=== PATIENT | male | born 1990 | race Caucasian/White ===

== ENCOUNTER 2016-10-04 20:12 | Emergency (ER) | payer SELFPAY ==
[~2016-10-04] VITALS: Ht 167.6 cm; Wt 78.0 kg
[~2016-10-04 20:12] MED LIST: VIST25CA PO
[2016-10-04 20:18] VITALS: BP 135/92; PULSE 85; RESP 18; TEMP 98.3; O2SAT 97
--- NOTE | 2016-10-04 20:35 | PD ---
HPI Chief Complaint: Laceration/Skin Injury Time Seen by Provider: 20:30 Travel History International Travel<30 days: No Contact w/Intl Traveler<30days: No Traveled to known affect area: No History of Present Illness HPI 26-year-old male presents to the emergency department for evaluation of left hand thumb laceration. Patient states he was cutting a limb with a knife when he accidentally cut his thumb. Patient is reporting that he has decreased sensation on the distal tip of his thumb. He has full range of motion. Denies any other complaints. Last tetanus vaccination more than 5 years ago. No other complaints. History Past Medical History ADHD: Yes Anxiety: Yes Asthma: Yes Autoimmune Disease: No Bipolar Disorder: Yes Blood Disorders: No Cancer: No Heart Rhythm Problems: No Cardiovascular Problems: Yes Chest Pain: No Cystic Fibrosis: No Depression: Yes Diabetes: No Gastrointestinal Disorders: No Genitourinary: No Headaches: Yes Hearing: No Hypertension: Yes Musculoskeletal: No Neurologic: Yes Psychiatric: Yes (DEPRESSION, ADHD, BIPOLAR) Reproductive: No Respiratory: Yes (ASTHMA) Immunizations Current: Yes Sickle Cell Disease: No Sleep Apnea: No Thyroid Disease: No Ulcer: No Tetanus Vaccination: Unknown Influenza Vaccination: No Vision or Eye Problem: No Past Surgical History Abdominal Surgery: No Cardiac Surgery: No Ear Surgery: No Endocrine Surgery: No Eye Surgery: No Genitourinary Surgery: Yes (CIRCUMCISED) Gynecologic Surgery: No Neurologic Surgery: No Oral Surgery: No Thoracic Surgery: No Other Surgery: No Social History Tobacco Use in Home: Yes Alcohol Use: Yes (Occ.) Tobacco Use: Yes (1/2 PPD) Substance Use: Yes (Marijuana daily) Allergies-Medications (Allergen,Severity, Reaction): Coded Allergies: Shellfish (Verified Allergy, Severe, THROAT SWELLS, 10/04/16) Reported Meds & Prescriptions Reported Meds & Active Scripts Active No Active Prescriptions or Reported Medications ROS Except as stated in HPI: all other systems reviewed are Neg Physical Exam Narrative GENERAL: Well-nourished and well-developed pleasant male patient in no acute distress who is nontoxic appearing. SKIN: Warm and dry. HEAD: Normocephalic and atraumatic. EYES: No injection, drainage, or hyphema noted. PERRLA. EOMI. ENT: No nasal drainage noted. Oropharynx is clear. NECK: Supple and the trachea is midline. CARDIOVASCULAR: Regular rate and rhythm. RESPIRATORY: Breath sounds are equal bilaterally with no accessory muscle use, wheezing, rhonchi, or crackles. EXTREMITY: Left hand thumb with 1 cm laceration to the ulnar aspect. Full range of motion in all joints. No joint swelling/injury. Normal opposition of thumb. Distal extremity neurovascularly intact with intact two point discrimination. NEUROLOGICAL: Awake, alert, and oriented. Normal speech and gait. Cranial nerves are grossly intact. Data Data Last Documented VS Vital Signs Date Time Temp Pulse Resp B/P Pulse Ox O2 Delivery O2 Flow Rate FiO2 10/04/16 20:18 98.3 85 18 135/92 97 Orders Tetanus/Diphtheria Tox Adult (Tetanus/Di (10/04/16 20:45) MDM Medical Decision Making Medical Screen Exam Complete: Yes Emergency Medical Condition: Yes Differential Diagnosis Laceration versus abrasion versus avulsion Narrative Course 26-year-old male presents to the emergency department for evaluation of left hand thumb laceration. Patient is afebrile, vital signs are stable. Laceration repair is performed, see procedure narrative. Tetanus vaccinations updated here in the ED. Discussed proper wound care techniques. Advised follow -up with his PCP. Patient verbalizes understanding and agreement with treatment plan. Procedures Procedure Narrative LACERATION LOCATION: Left thumb LENGTH: 1 cm NUMBER OF STITCHES/CARSON: 3 sutures REPAIR: The area of the laceration was prepped with ChloraPrep and sterilely draped. The laceration was infiltrated with 1% lidocaine. The wound was copiously irrigated and explored without evidence of foreign body, tendon injury or neurovascular injury. The wound was closed using 4. 0 Ethilon. This was a single layer repair. Antibiotic ointment and a sterile dressing was applied. The patient was advised to keep the dressing clean and dry. Patient tolerated the procedure well. Diagnosis Primary Impression: Laceration of thumb, left Qualified Code: S61.012A - Laceration of thumb, left, initial encounter Referrals: Hand Surgeon Patient Instructions: Finger Laceration (ED), General Instructions Additional Instructions: Wash gently with soap and water. Apply topical antibiotic ointment twice daily. Have sutures removed in 7 days. Follow-up with your Primary Care Physician. Return to the ED for any acute worsening of symptoms. Med/Other Pt SpecificInfo: No Change to Meds Scripts No Active Prescriptions or Reported Meds Disposition: 01 DISCHARGE HOME Condition: Stable Mikaela Quiñones Oct 04, 2016 20:35
[2016-10-04] MEDS ORDERED: TETANUS/DIPHTHERIA TOXOID ADULT 0.5 ML VIAL IM ONE (20:45)
== END 2016-10-04 21:00 | disposition home or self-care (01) ==
LOC: PHEFT 20:12
DX: S61.012A Laceration without foreign body of left thumb without damage to nail, initial encounter (principal); I10 Essential (primary) hypertension; F17.200 Nicotine dependence, unspecified, uncomplicated; Z23 Encounter for immunization; Z86.59 Personal history of other mental and behavioral disorders; Z87.09 Personal history of other diseases of the respiratory system; Z86.79 Personal history of other diseases of the circulatory system; Z86.69 Personal history of other diseases of the nervous system and sense organs; W26.0XXA Contact with knife, initial encounter; Y93.H2 Activity, gardening and landscaping
CPT/HCPCS: 12001; 90471; 90714

== ENCOUNTER 2017-03-14 18:35 | Emergency (ER) | payer SELFPAY ==
[2017-03-14 18:39] VITALS: BP 135/86; PULSE 107; RESP 20; TEMP 98.4; O2SAT 97
--- NOTE | 2017-03-14 19:07 | PD ---
HPI Chief Complaint: Bite or Sting Time Seen by Provider: 19:00 Travel History International Travel<30 days: No Contact w/Intl Traveler<30days: No Traveled to known affect area: No History of Present Illness HPI 26-year-old male presents for evaluation of right index finger pain, swelling. He reports that 4 hours prior to examination his cat bit him on the right hand. Since then he has developed rapid swelling, pain in the right index finger. Pain is throbbing, constant, worse with flexion and extension of the right index finger. His last tetanus vaccination was within 5 years. No other complaints. PFSH Past Medical History ADHD: Yes Asthma: Yes Autoimmune Disease: No Blood Disorders: No Bipolar Disorder: Yes Anxiety: Yes Depression: Yes Heart Rhythm Problems: No Cancer: No Cardiovascular Problems: Yes Chest Pain: No Cystic Fibrosis: No Diabetes: No Diminished Hearing: No Gastrointestinal Disorders: No Genitourinary: No Headaches: Yes Hypertension: Yes Musculoskeletal: No Neurologic: Yes Psychiatric: Yes (DEPRESSION, ADHD, BIPOLAR) Reproductive: No Respiratory: Yes (ASTHMA) Immunizations Current: Yes Seizures: No Sickle Cell Disease: No Sleep Apnea: No Thyroid Disease: No Ulcer: No Past Surgical History Abdominal Surgery: No Cardiac Surgery: No Ear Surgery: No Endocrine Surgery: No Eye Surgery: No Genitourinary Surgery: Yes (CIRCUMCISED) Gynecologic Surgery: No Neurologic Surgery: No Oral Surgery: No Thoracic Surgery: No Other Surgery: No Social History Alcohol Use: Yes (Occ.) Tobacco Use: Yes (1/2 PPD) Substance Use: Yes (Marijuana daily) Allergies-Medications (Allergen,Severity, Reaction): Coded Allergies: shellfish derived (Unverified Allergy, Severe, THROAT SWELLS, 03/14/17) Reported Meds & Prescriptions Reported Meds & Active Scripts Active No Active Prescriptions or Reported Medications Review of Systems General / Constitutional: No: Fever, Chills Musculoskeletal: Positive: Limited ROM, Pain Skin: Positive Other (puncture wounds) Physical Exam Narrative GENERAL: Well-nourished male in no acute distress SKIN: Warm and dry. Puncture wound noted on the medial aspect of the proximal right index finger, puncture wound noted to the dorsal aspect of the right index finger adjacent to the PIP joint. There is a puncture wound to the palmar aspect of the proximal right thumb. HEAD: Atraumatic. Normocephalic. EYES: Pupils equal and round. No scleral icterus. No injection or drainage. ENT: No nasal bleeding or discharge. Mucous membranes pink and moist. NECK: Trachea midline. No JVD. CARDIOVASCULAR: Regular rate and rhythm. No murmur appreciated. RESPIRATORY: No accessory muscle use. Clear to auscultation. Breath sounds equal bilaterally. MUSCULOSKELETAL: Skin as noted above. The right index finger is diffusely swollen and held in passive flexion. There is pain with passive and active extension of the right index finger. NEUROLOGICAL: Awake and alert. No obvious cranial nerve deficits. Motor grossly within normal limits. Normal speech. Data Data Last Documented VS Vital Signs Date Time Temp Pulse Resp B/P (MAP) Pulse Ox O2 Delivery O2 Flow Rate FiO2 03/14/17 18:39 98.4 107 20 135/86 (102) 97 Orders Orders Ampicillin-Sulbactam Inj (Unasyn Inj) (03/14/17 19:15) Finger ([id number]) (03/14/17 ) Complete Blood Count With Diff (03/14/17 19:01) Basic Metabolic Panel (Bmp) (03/14/17 19:01) Act Partial Throm Time (Ptt) (03/14/17 19:01) Prothrombin Time / Inr (Pt) (03/14/17 19:01) Morphine Inj (Morphine Inj) (03/14/17 20:15) Ondansetron Inj (Zofran Inj) (03/14/17 20:15) Labs Laboratory Tests Test 03/14/17 19:10 White Blood Count 18.8 TH/MM3 Red Blood Count 5.02 MIL/MM3 Hemoglobin 15.5 GM/DL Hematocrit 45.6 % Mean Corpuscular Volume 90.8 FL Mean Corpuscular Hemoglobin 30.9 PG Mean Corpuscular Hemoglobin Concent 34.0 % Red Cell Distribution Width 12.1 % Platelet Count 246 TH/MM3 Mean Platelet Volume 9.1 FL Neutrophils (%) (Auto) 84.1 % Lymphocytes (%) (Auto) 10.2 % Monocytes (%) (Auto) 3.9 % Eosinophils (%) (Auto) 1.2 % Basophils (%) (Auto) 0.6 % Neutrophils # (Auto) 15.9 TH/MM3 Lymphocytes # (Auto) 1.9 TH/MM3 Monocytes # (Auto) 0.7 TH/MM3 Eosinophils # (Auto) 0.2 TH/MM3 Basophils # (Auto) 0.1 TH/MM3 CBC Comment DIFF FINAL Differential Comment Prothrombin Time 12.0 SEC Prothromb Time International Ratio 1.1 RATIO Activated Partial Thromboplast Time 26.8 SEC Blood Urea Nitrogen 15 MG/DL Creatinine 0.93 MG/DL Random Glucose 102 MG/DL Calcium Level 9.1 MG/DL Sodium Level 139 MEQ/L Potassium Level 3.4 MEQ/L Chloride Level 106 MEQ/L Carbon Dioxide Level 23.2 MEQ/L Anion Gap 10 MEQ/L Estimat Glomerular Filtration Rate 97 ML/MIN MDM Medical Decision Making Medical Screen Exam Complete: Yes Emergency Medical Condition: Yes Medical Record Reviewed: Yes Interpretation(s) CONCLUSION: Soft tissue swelling without radiopaque foreign body or acute bony abnormality. Differential Diagnosis Flexor tenosynovitis, septic arthritis, cellulitis Narrative Course 26-year-old male presents with rapidly progressing swelling and pain in the right index finger after being bitten by his cat 4 hours ago. Examination reveals generalized soft tissue swelling to the right index finger, pain with passive and active range of motion, the finger is held primarily in passive flexion. Certainly the presentation is suspicious for early flexor tenosynovitis. Plan is for basic lab work, x-ray of the right index finger. IV Unasyn will be administered. Lab work reveals leukocytosis with a WBC count of 18.8. There is no hand surgeon non destructive testing supervisor today or this weekend here at [place]. Therefore Dr. Marquez discussed the case with the hand surgeon on-call at [facility] , Dr. Yu, who is agreeable with having the patient transferred ED-ED. Discussed with the patient who is agreeable and aware. Diagnosis Primary Impression: Tenosynovitis of finger Additional Impressions: Cat bite Qualified Codes: W55.01XA - Bitten by cat, initial encounter Leukocytosis Qualified Codes: D72.829 - Elevated white blood cell count, unspecified Scripts No Active Prescriptions or Reported Meds Disposition: 70 TRANSFER TO OTHER FACILITY ([facility]) Condition: Stable Danny Santa Mar 14, 2017 19:07
[2017-03-14] MEDS ORDERED: AMPICILLIN-SULBACTAM INJ 3 GM in SODIUM CHLORIDE 0.9% INJ 100 ML IV ONE (19:15)
--- NOTE | 2017-03-14 19:27 | RADRPT ---
EXAM DATE/TIME: 03/14/2017 19:09 [facility] COMPARISON: No previous studies available for comparison. INDICATIONS : Right hand, second digit swelling and pain post cat bite. MEDICAL HISTORY : None. SURGICAL HISTORY : None. ENCOUNTER: Initial ACUITY: 1 day PAIN SCORE: 8/10 LOCATION: Right upper extremity FINDINGS: Soft tissue swelling noted of the pointer finger, especially proximal and mid portions. No radiopaque foreign body seen. Bones of the pointer finger are intact and normally aligned. No periosteal reacti on. CONCLUSION: Soft tissue swelling without radiopaque foreign body or acute bony abnormality. Cr Watters MD on March 14, 2017 at 19:25 Board Certified Radiologist. This report was verified electronically.
[2017-03-14 19:29] LABS: APTT (PATIENT) 26.8 SEC (24.3-30.1); INTERNATIONAL NORMALIZED RATIO 1.1 RATIO
[2017-03-14 19:37] LABS: AUTOMATED NEUTROPHIL # 15.9 TH/MM3 (1.8-7.7); BASOPHIL # 0.1 TH/MM3 (0-0.2); BASOPHIL % 0.6 % (0.0-2.0); EOSINOPHIL # 0.2 TH/MM3 (0-0.4); EOSINOPHIL % 1.2 % (0.0-4.0); HEMATOCRIT 45.6 % (39.0-51.0); LYMPH % 10.2 % (9.0-44.0); LYMPHOCYTE # 1.9 TH/MM3 (1.0-4.8); MEAN CELL VOLUME 90.8 FL (80.0-100.0); MEAN CORPUSCULAR HEMOGLOBIN 30.9 PG (27.0-34.0); MONO % 3.9 % (0.0-8.0); NEUT % 84.1 % (16.0-70.0); PLATELET COUNT 246 TH/MM3 (150-450); RED BLOOD COUNT 5.02 MIL/MM3 (4.50-5.90); RED CELL DISTRIBUTION WIDTH 12.1 % (11.6-17.2); WHITE BLOOD COUNT 18.8 TH/MM3 (4.0-11.0)
[2017-03-14 19:40] LABS: HEMO FLAGS DIFF FINAL
[2017-03-14 19:52] LABS: POTASSIUM 3.4 MEQ/L (3.5-5.1)
[2017-03-14 19:56] LABS: BICARBONATE 23.2 MEQ/L (21.0-32.0)
[2017-03-14] MEDS ORDERED: MORPHINE SULFATE 4 MG/ML INJ IV PUSH ONE (20:15)
[2017-03-14] MEDS ORDERED: ONDANSETRON HCL 4 MG/2 ML VIAL IV PUSH ONE (20:15)
--- NOTE | 2017-03-14 20:22 | PD ---
Physical Exam Time Seen by Provider: 20:17 Narrative The patient has a surprisingly rapid swelling of his index finger with tenderness in the palm of the hand directly in line with the second metacarpal. His white count is 18,000. I discussed the patient with Dr. Yu and he accepted the patient emergency department to emergency department transfer to [facility]. Data Data Last Documented VS Vital Signs Date Time Temp Pulse Resp B/P (MAP) Pulse Ox O2 Delivery O2 Flow Rate FiO2 03/14/17 18:39 98.4 107 20 135/86 (102) 97 Orders Orders Ampicillin-Sulbactam Inj (Unasyn Inj) (03/14/17 19:15) Finger ([id number]) (03/14/17 ) Complete Blood Count With Diff (03/14/17 19:01) Basic Metabolic Panel (Bmp) (03/14/17 19:01) Act Partial Throm Time (Ptt) (03/14/17 19:01) Prothrombin Time / Inr (Pt) (03/14/17 19:01) Morphine Inj (Morphine Inj) (03/14/17 20:15) Ondansetron Inj (Zofran Inj) (03/14/17 20:15) Labs Laboratory Tests Test 03/14/17 19:10 White Blood Count 18.8 TH/MM3 Red Blood Count 5.02 MIL/MM3 Hemoglobin 15.5 GM/DL Hematocrit 45.6 % Mean Corpuscular Volume 90.8 FL Mean Corpuscular Hemoglobin 30.9 PG Mean Corpuscular Hemoglobin Concent 34.0 % Red Cell Distribution Width 12.1 % Platelet Count 246 TH/MM3 Mean Platelet Volume 9.1 FL Neutrophils (%) (Auto) 84.1 % Lymphocytes (%) (Auto) 10.2 % Monocytes (%) (Auto) 3.9 % Eosinophils (%) (Auto) 1.2 % Basophils (%) (Auto) 0.6 % Neutrophils # (Auto) 15.9 TH/MM3 Lymphocytes # (Auto) 1.9 TH/MM3 Monocytes # (Auto) 0.7 TH/MM3 Eosinophils # (Auto) 0.2 TH/MM3 Basophils # (Auto) 0.1 TH/MM3 CBC Comment DIFF FINAL Differential Comment Prothrombin Time 12.0 SEC Prothromb Time International Ratio 1.1 RATIO Activated Partial Thromboplast Time 26.8 SEC Blood Urea Nitrogen 15 MG/DL Creatinine 0.93 MG/DL Random Glucose 102 MG/DL Calcium Level 9.1 MG/DL Sodium Level 139 MEQ/L Potassium Level 3.4 MEQ/L Chloride Level 106 MEQ/L Carbon Dioxide Level 23.2 MEQ/L Anion Gap 10 MEQ/L Estimat Glomerular Filtration Rate 97 ML/MIN [facility] Medical Record Reviewed: Yes Supervised Visit with SHAHEED: Yes Differential Diagnosis Cat bite, flexor tendon infection index finger, cellulitis, tenosynovitis from bite, joint infection from bite Narrative Course The patient may have a tendon sheath infection, this is extremely early but he all the signs of rapid development. We have no hand surgeon here today or tomorrow and I discussed the patient with Dr. Wu, he will accept the patient at [facility] emergency department. Diagnosis Primary Impression: Tenosynovitis of finger Additional Impressions: Leukocytosis Qualified Codes: D72.829 - Elevated white blood cell count, unspecified Cat bite Qualified Codes: W55.01XA - Bitten by cat, initial encounter Additional Instruction: Dr. Yu is the hand surgeon that will see you in the emergency department at [facility]. Scripts No Active Prescriptions or Reported Meds Disposition: 70 TRANSFER TO OTHER FACILITY Condition: Stable Oleg Marquez MD Mar 14, 2017 20:21
== END 2017-03-14 21:42 | disposition short-term general hospital (02) ==
LOC: PHEFT 18:35
DX: S61.451A Open bite of right hand, initial encounter (principal); W55.01XA Bitten by cat, initial encounter; D72.829 Elevated white blood cell count, unspecified; I10 Essential (primary) hypertension; F17.210 Nicotine dependence, cigarettes, uncomplicated
CPT/HCPCS: 73140; 80048; 85025; 85610; 85730; 96365; 96375; 99285; J0295; J2270; J2405

== ENCOUNTER 2017-08-04 21:33 | Emergency (ER) | payer SELFPAY ==
[~2017-08-04] VITALS: Ht 167.6 cm; Wt 74.4 kg
[2017-08-04 21:42] VITALS: BP 139/85; PULSE 88; RESP 12; TEMP 98.1; O2SAT 98
[2017-08-04] MEDS ORDERED: LIDOCAINE HCL 1% PF 10 ML VIAL INFIL ONE (22:45)
--- NOTE | 2017-08-04 23:13 | PD ---
HPI Chief Complaint: Laceration/Skin Injury Time Seen by Provider: 22:33 Travel History International Travel<30 days: No Contact w/Intl Traveler<30days: No Traveled to known affect area: No History of Present Illness HPI 27-year-old male presents to the emergency department with laceration to the left middle finger. Patient is right-handed. Last tetanus shot was one year ago. Patient states he was cutting some food and sliced the tip of his left little finger with a knife. Patient denies other injuries or complaints. Injury occurred approximately 8 PM. [facility] Past Medical History Narrative Medical ADHD bipolar disorder asthma; nursing notes reviewed ADHD: Yes Asthma: Yes Autoimmune Disease: No Blood Disorders: No Bipolar Disorder: Yes Anxiety: Yes Depression: Yes Heart Rhythm Problems: No Cancer: No Cardiovascular Problems: Yes Chest Pain: No Cystic Fibrosis: No Diabetes: No Diminished Hearing: No Gastrointestinal Disorders: No Genitourinary: No Headaches: Yes Hypertension: Yes Musculoskeletal: No Neurologic: Yes Psychiatric: Yes (DEPRESSION, ADHD, BIPOLAR) Reproductive: No Respiratory: Yes (ASTHMA) Immunizations Current: Yes Seizures: No Sickle Cell Disease: No Sleep Apnea: No Thyroid Disease: No Ulcer: No Influenza Vaccination: No ?: Not Past Surgical History Abdominal Surgery: No Cardiac Surgery: No Ear Surgery: No Endocrine Surgery: No Eye Surgery: No Genitourinary Surgery: Yes (CIRCUMCISED) Gynecologic Surgery: No Neurologic Surgery: No Oral Surgery: No Thoracic Surgery: No Other Surgery: No Social History Alcohol Use: Yes (Occ.) Tobacco Use: Yes (1/2 PPD) Substance Use: Yes (Marijuana daily) Allergies-Medications (Allergen,Severity, Reaction): Coded Allergies: shellfish derived (Unverified Allergy, Severe, THROAT SWELLS, 03/14/17) Reported Meds & Prescriptions Reported Meds & Active Scripts Active No Active Prescriptions or Reported Medications Review of Systems Except as stated in HPI: all other systems reviewed are Neg Physical Exam Narrative General: Well-developed well nourished male no acute distress or respiratory distress Extremity attention left middle finger 1 cm flap laceration involving the distal aspect of the nailbed digit is neurovascularly tendon intact with brisk capillary refill less than 2 seconds semi-position is intact. Ongoing bleeding noted. Data Data Last Documented VS Vital Signs Date Time Temp Pulse Resp B/P (MAP) Pulse Ox O2 Delivery O2 Flow Rate FiO2 08/05/17 00:44 08/04/17 23:27 20 08/04/17 21:42 98.1 88 98 Orders Orders Lidocaine Pf 1% Inj (Xylocaine-Mpf 1% In (08/04/17 22:45) Finger ([id number]) (08/04/17 ) Ed Discharge Order (08/05/17 00:19) Wound Care (08/05/17 00:19) MDM Medical Decision Making Medical Screen Exam Complete: Yes Emergency Medical Condition: Yes Medical Record Reviewed: Yes Interpretation(s) Last Impressions Finger X-Ray 08/04/17 0000 Signed Impressions: Service Date/Time: Friday, August 04, 2017 23:31 - CONCLUSION: Mild soft tissue swelling with no radiopaque foreign body or fracture. Isac Roman MD Differential Diagnosis Laceration, nailbed laceration, fracture, neurovascular or tendon injury Narrative Course Patient with distal tip flap laceration involving the distal aspect of the nailbed; laceration repair performed; patient tolerated laceration repair well Imaging reveals no involvement of the bony aspect of the digit and no retained foreign body Patient stable for outpatient management Procedures Procedure Narrative LACERATION LOCATION: left middle finger tip LENGTH: 1 cm NUMBER OF STITCHES/CARSON: 5 REPAIR: The area of the laceration was prepped with Betadine and sterilely draped. The laceration was infiltrated with 1% lidocaine plain. The wound was copiously irrigated and explored without evidence of foreign body, tendon injury or neurovascular injury. The wound was closed using 5-0 nylon. This was a single layer repair. A sterile dressing was applied. The patient was advised to keep the dressing clean and dry. Patient tolerated the procedure well. Diagnosis Primary Impression: Laceration of finger nail bed Qualified Codes: S61.319A - Laceration without foreign body of unspecified finger with damage to nail, initial encounter Referrals: Primary Care Physician 2 days Patient Instructions: General Instructions Additional Instructions: Wound check at 2 days suture removal at 7-10 days Keep site clean and dry Change dressing daily Take acetaminophen or ibuprofen per package directions as needed for fever 100.4 F or greater or for discomfort Return to the emergency department for any concerns or change in condition Scripts No Active Prescriptions or Reported Meds Disposition: 01 DISCHARGE HOME Condition: Stable Andra Adkins MD Aug 04, 2017 23:13
--- NOTE | 2017-08-04 23:46 | RADRPT ---
EXAM DATE/TIME: 08/04/2017 23:31 [facility] COMPARISON: No previous studies available for comparison. INDICATIONS : Left hand third digit laceration. Patient states he cut his finger with a knife. MEDICAL HISTORY : None. SURGICAL HISTORY : None. ENCOUNTER: Initial ACUITY: 1 day PAIN SCORE: 6/10 LOCATION: Left hand, third digit. FINDINGS: Examination of the third digit of the left hand demonstrates no evidence of fracture or dislocation. No radiopaque foreign bodies are seen. There is soft tissue swelling over the distal third digit wit h mild irregularity and overlying bandage. CONCLUSION: Mild soft tissue swelling with no radiopaque foreign body or fracture. Isac Roman MD on August 04, 2017 at 23:44 Board Certified Radiologist. This report was verified electronically.
== END 2017-08-05 00:46 | disposition home or self-care (01) ==
LOC: PHEFT 21:33
DX: S61.313A Laceration without foreign body of left middle finger with damage to nail, initial encounter (principal); W26.0XXA Contact with knife, initial encounter; Y93.G1 Activity, food preparation and clean up; I10 Essential (primary) hypertension; F90.9 Attention-deficit hyperactivity disorder, unspecified type; F41.9 Anxiety disorder, unspecified; F31.9 Bipolar disorder, unspecified; J45.909 Unspecified asthma, uncomplicated; F17.200 Nicotine dependence, unspecified, uncomplicated
CPT/HCPCS: 12001; 73140